=== PATIENT | female | born 1935 | race Two or more races ===

== ENCOUNTER 2021-02-03 17:26 | Emergency (ER) | payer OTHER ==
[~2021-02-03] VITALS: Ht 157.5 cm; Wt 45.4 kg
[2021-02-03] MEDS ORDERED: LEVOTHYROXINE13 MCG PO (17:49)
[2021-02-03] MEDS ORDERED: SIMVASTATIN5 MG PO (17:49)
[2021-02-03] MEDS ORDERED: TRAZODONE HCL5 GM MC (17:49)
== END 2021-02-03 21:22 | disposition home or self-care (01) ==
LOC: ER 17:26
DX: F06.4 Anxiety disorder due to known physiological condition (principal); F03.90 Unspecified dementia, unspecified severity, without behavioral disturbance, psychotic disturbance, mood disturbance, and anxiety